=== PATIENT | female | born 1990 | race Caucasian/White ===

== ENCOUNTER 2016-11-29 08:04 | Emergency (ER) | payer OTHER ==
[~2016-11-29] VITALS: Ht 157.5 cm; Wt 75.3 kg
[2016-11-29 08:42] VITALS: BP 120/79
== END 2016-11-29 08:42 | disposition home or self-care (01) ==
LOC: ED 08:04
DX: N39.0 Urinary tract infection, site not specified (principal); R51 Headache
CPT/HCPCS: J1885

== ENCOUNTER 2017-06-03 01:06 | Emergency (ER) | payer OTHER ==
[~2017-06-03] VITALS: Ht 160 cm; Wt 78.0 kg
[2017-06-03 01:24] VITALS: Ht 160 cm; Wt 78.0 kg
[2017-06-03 04:19] VITALS: BP 104/71
== END 2017-06-03 04:19 | disposition home or self-care (01) ==
LOC: ED 01:06
DX: N12 Tubulo-interstitial nephritis, not specified as acute or chronic (principal); R51 Headache
CPT/HCPCS: Q0162

== ENCOUNTER 2018-05-08 20:28 | Emergency (ER) | payer OTHER ==
[~2018-05-08] VITALS: Ht 160 cm; Wt 80.7 kg
[2018-05-08 20:53] VITALS: Ht 160 cm; Wt 80.7 kg
[2018-05-08 22:40] VITALS: BP 119/84
== END 2018-05-08 22:45 | disposition home or self-care (01) ==
LOC: ED 20:28
DX: R51 Headache (principal); L72.8 Other follicular cysts of the skin and subcutaneous tissue; Z90.49 Acquired absence of other specified parts of digestive tract
CPT/HCPCS: J1885; Q0162